=== PATIENT | male | born 1960 | race Caucasian/White ===

== ENCOUNTER 2018-11-04 13:17 | Emergency (ER) | payer OTHER ==
--- NOTE | 2018-11-04 14:01 | ER Document Report ---
ED Medical Screen (RME) - General Chief Complaint: Leg Swelling Stated Complaint: LEG/FOOT SWELLING Time Seen by Provider: 11/04/18 13:32 Mode of Arrival: Ambulatory Information source: Patient Notes: 4-year-old male with history of right lower extremity cellulitis, no other medical problems presents with complaint of 2 weeks of right lower extremity swelling, erythema. Patient works in [place] and states this started 1 week prior to returning home. Patient returned home 5 days prior to arrival. He denies any history of DVT, PE. He denies shortness of breath. I have greeted and performed a rapid initial assessment of this patient. A comprehensive ED assessment and evaluation of the patient, analysis of test results and completion of medical decision making process we will be contacted by additional ED providers. PHYSICAL EXAMINATION: Vital signs reviewed GENERAL: Well-appearing, well-nourished and in no acute distress. LUNGS: No respiratory distress Musculoskeletal: Right lower extremity swelling, erythema, warmth NEUROLOGICAL: Normal speech, normal gait. PSYCH: Normal mood, normal affect. SKIN: Right foot skin sloughing TRAVEL OUTSIDE OF THE [place] IN LAST 30 DAYS: No - HPI Onset: Other Onset/Duration: Gradual Quality of pain: No pain Associated Symptoms: Nausea, Vomiting - One episode last week resolved Similar symptoms previously: Yes Recently seen / treated by doctor: No - Related Data Smoking: Non-smoker Frequency of alcohol use: None Drug Abuse: None Allergies/Adverse Reactions: No Known Allergies Allergy (Verified 11/04/18 13:31) Past Medical History - Social History Chew tobacco use (# tins/day): No Frequency of alcohol use: Occasional Drug Abuse: None Renal/ Medical History: Denies: Hx Peritoneal Dialysis - Immunizations Hx Diphtheria, Pertussis, Tetanus Vaccination: Yes Physical Exam - Vital signs Vitals: Temp Pulse Resp BP Pulse Ox 98.0 F 75 16 133/89 H 97 11/04/18 13:21 11/04/18 13:21 11/04/18 13:21 11/04/18 13:21 11/04/18 13:21 Course - Vital Signs Vital signs: Temp Pulse Resp BP Pulse Ox 98.0 F 75 16 133/89 H 97 11/04/18 13:21 11/04/18 13:21 11/04/18 13:21 11/04/18 13:21 11/04/18 13:21 Doctor's Discharge - Discharge Referrals: PACO MELENDEZ MD [Primary Care Provider] - Follow up as needed
--- NOTE | 2018-11-04 14:32 | ER Document Report ---
ED General - General Chief Complaint: Leg Swelling Stated Complaint: LEG/FOOT SWELLING Time Seen by Provider: 11/04/18 13:32 Mode of Arrival: Ambulatory Information source: Patient Notes: 58-year-old male with a history of right lower extremity cellulitis presents emergency department with complaints of right lower extremity swelling for the last 2 weeks. Patient states that he travels back and forth to [facility]. Patient states that 2 weeks ago he arrived in [facility] and over a week noticed the swelling to the right lower extremity worsening. He had associated erythema and chills. [place] the [place] 5 [place] ago. Swelling has decreased but is still present. Still erythematous. Patient denies a history of DVT, PE, chest pain, shortness of breath. Patient denies any medical problems. Not on medication. Patient says he had similar erythema and swelling 2 years ago and he was diagnosed with cellulitis. He was treated with Bactrim and Keflex. Patient states that his symptoms completely resolved. Patient is worried that he has cellulitis again. TRAVEL OUTSIDE OF THE [place] IN LAST 30 DAYS: No - HPI Onset: Other - 2 weeks Quality of pain: No pain Severity: None Pain Level: Denies Associated symptoms: Chills Exacerbated by: Denies Relieved by: Denies Similar symptoms previously: Yes Recently seen / treated by doctor: No - Related Data Allergies/Adverse Reactions: No Known Allergies Allergy (Verified 11/04/18 13:31) Past Medical History - General Information source: Patient - Social History Smoking Status: Never Smoker Chew tobacco use (# tins/day): No Frequency of alcohol use: Occasional Drug Abuse: None Family History: Reviewed & Not Pertinent Patient has suicidal ideation: No Patient has homicidal ideation: No Renal/ Medical History: Denies: Hx Peritoneal Dialysis - Immunizations Hx Diphtheria, Pertussis, Tetanus Vaccination: Yes Review of Systems - Review of Systems Constitutional: Chills EENT: No symptoms reported Cardiovascular: No symptoms reported Respiratory: No symptoms reported Gastrointestinal: No symptoms reported Genitourinary: No symptoms reported Musculoskeletal: Leg swelling Skin: Change in color Hematologic/Lymphatic: No symptoms reported Neurological/Psychological: No symptoms reported -: Yes All other systems reviewed and negative Physical Exam - Vital signs Vitals: Temp Pulse Resp BP Pulse Ox 98.0 F 75 16 133/89 H 97 11/04/18 13:21 11/04/18 13:21 12/18/18 13:21 11/04/18 13:21 11/04/18 13:21 - Notes Notes: PHYSICAL EXAMINATION: GENERAL: Well-appearing, well-nourished and in no acute distress. HEAD: Atraumatic, normocephalic. EYES: Pupils equal round and reactive to light, extraocular movements intact, sclera anicteric, conjunctiva are normal. ENT: Nares patent, oropharynx clear without exudates. Moist mucous membranes. NECK: Normal range of motion, supple without lymphadenopathy LUNGS: Breath sounds clear to auscultation bilaterally and equal. No wheezes rales or rhonchi. HEART: Regular rate and rhythm without murmurs ABDOMEN: Soft, nontender, nondistended abdomen. No guarding, no rebound. No masses appreciated. Musculoskeletal: Normal range of motion. Swelling to the right lower leg. No calf tenderness to palpation. No pitting edema. Abrasions seen on the tierney. Patient says that he scratched his leg. 2+ DP/PT. Skin sloughing to the heel. NEUROLOGICAL: Cranial nerves grossly intact. Normal speech, normal gait. Normal sensory, motor exams PSYCH: Normal mood, normal affect. SKIN: Warm, Dry, normal turgor, erythema to the RLE. Skin sloughing to the R heel. Course - Re-evaluation Re-evalutation: 11/04/18 14:39 Venous Dopplers negative. Patient's white blood cell count is normal. There is swelling and erythema to the left lower extremity. Abrasion to the tierney. Patient says that he scratched himself. Denies trauma or injury. No pain to palpation of the lower extremity. Foot has skin sloughing. I will start the patient on Bactrim and Keflex. I told the patient to finish the antibiotics and to follow-up for a reevaluation with the primary care physician provided. I told the patient that if his symptoms are not resolving that he either needs to come back to the emergency department for further evaluation or he needs to follow-up with the primary care physician. Patient feels comfortable with the plan of care. He denies any chest pain, shortness of breath, abdominal pain. 11/04/18 15:49 - Vital Signs Vital signs: Temp Pulse Resp BP Pulse Ox 98.0 F 75 16 133/89 H 97 11/04/18 13:21 11/04/18 13:21 11/04/18 13:21 11/04/18 13:21 11/04/18 13:21 - Laboratory Result Diagrams: 11/04/18 14:45 11/04/18 14:45 Laboratory results interpreted by me: 11/04/18 14:45 Glucose 127 H Discharge - Discharge Clinical Impression: Cellulitis Qualifiers: Site of cellulitis: extremity Site of cellulitis of extremity: lower extremity Laterality: right Qualified Code(s): L03.115 - Cellulitis of right lower limb Condition: Good Disposition: HOME, SELF-CARE Instructions: Cellulitis ([facility]) Prescriptions: Cephalexin Monohydrate [Keflex 500 mg Capsule] 500 mg PO Q6H 5 Days #20 capsule Sulfamethoxazole/Trimethoprim [Bactrim Ds Tablet] 1 each PO BID #14 tablet Referrals: PACO MELENDEZ MD [ACTIVE STAFF] - Follow up as needed LOUISA MARTI DO [NO LOCAL MD] - Follow up as needed
[2018-11-04] MEDS ORDERED: CEPHALEXIN 500 MG CAPSULE PO ONE ×2 (14:36→16:51)
[2018-11-04] MEDS ORDERED: SULFAMETHOXAZOLE/TRIMETHOPRIM 800-160 MG TABLET PO ONE (14:36)
[2018-11-04 14:54] LABS: ABSOLUTE EOSINOPHILS # (AUTO) 0.1 10^3/uL (0.0-0.6); ABSOLUTE LYMPHOCYTES (AUTO) 1.9 10^3/uL (0.5-4.7); ABSOLUTE MONOCYTES (AUTO) 0.5 10^3/uL (0.1-1.4); ABSOLUTE NEUT (AUTO) 3.4 10^3/uL (1.7-8.2); BASOPHILS % (AUTO) 0.8 % (0-2); HEMOGLOBIN 15.7 g/dL (13.5-17.0); LYMPHOCYTES % (AUTO) 31.6 % (13-45); MEAN CORPUSCULAR HEMOGLOBIN 30.3 pg (27.0-33.4); MEAN CORPUSCULAR HGB CONC 34.2 g/dL (32.0-36.0); MEAN CORPUSCULAR VOLUME 89 fl (80-97); MONOCYTES % (AUTO) 8.3 % (3-13); PLATELET COUNT 269 10^3/uL (150-450); RED BLOOD COUNT 5.19 10^6/uL (4.35-5.55); SEGMENTED NEUTROPHILS % (AUTO) 57.3 % (42-78); TOTAL CELLS COUNTED % (AUTO) 100 %; WHITE BLOOD COUNT 5.9 10^3/uL (4.0-10.5)
[2018-11-04 15:11] LABS: ANION GAP 7 (5-19); BLOOD UREA NITROGEN 15 mg/dL (7-20); CALCIUM 9.1 mg/dL (8.4-10.2); CARBON DIOXIDE 30 mmol/L (22-30); CHLORIDE 103 mmol/L (98-107); GLUCOSE 127 mg/dL (75-110); POTASSIUM 4.2 mmol/L (3.6-5.0); SODIUM 140.1 mmol/L (137-145)
--- NOTE | 2018-11-04 16:38 | XCELERA REPORT ---
[address] [facility] [id number] Lower Extremity Venous Evaluation Procedure: Color flow and duplex imaging of the veins of the right lower extremity as well as the left Common Femoral vein. Right Sided Venous Evaluation Normal vessel filling wall to wall, compression and augmentation as well as Colour flow down to the infrageniculate veins. Left Sided Venous Evaluation The left common femoral vein is fully compressible. Spontaneous and phasic flow is present in the left common femoral vein. Interpretation Summary No duplex evidence of DVT or obstruction in the right lower extremity nor in the left Common Femoral vein. Name: JEAN NAJERA Age: 58 yrs Gender: Male : 1960 Patient Status: Emergency Patient Location: ER Study Date: 11/04/2018 04:07 PM Reason For Study: Right lower extremity swelling Ordering Physician: GUALBERTO VELA Performed By: Mel Juárez : GUALBERTO VELA > Omar Florez
[2018-11-04 16:56] VITALS: BP 122/94
== END 2018-11-04 16:56 | disposition home or self-care (01) ==
LOC: ER 13:17
DX: L03.115 Cellulitis of right lower limb (principal); R68.83 Chills (without fever)
CPT/HCPCS: 36415; 80048; 85025; 87040; 93971; 99284

== ENCOUNTER → 2018-11-15 | Outpatient (CLI) | payer OTHER ==
[2018-11-15 12:41] LABS: ABSOLUTE BASOPHILS # (AUTO) 0.1 10^3/uL (0.0-0.2); ABSOLUTE EOSINOPHILS # (AUTO) 0.2 10^3/uL (0.0-0.6); ABSOLUTE LYMPHOCYTES (AUTO) 1.9 10^3/uL (0.5-4.7); ABSOLUTE MONOCYTES (AUTO) 0.6 10^3/uL (0.1-1.4); ABSOLUTE NEUT (AUTO) 2.6 10^3/uL (1.7-8.2); EOSINOPHILS % (AUTO) 4.4 % (0-6); HEMATOCRIT 44.1 % (37.9-51.0); HEMOGLOBIN 15.1 g/dL (13.5-17.0); LYMPHOCYTES % (AUTO) 35.4 % (13-45); MEAN CORPUSCULAR HEMOGLOBIN 30.6 pg (27.0-33.4); MEAN CORPUSCULAR HGB CONC 34.2 g/dL (32.0-36.0); MEAN CORPUSCULAR VOLUME 89 fl (80-97); MONOCYTES % (AUTO) 11.1 % (3-13); PLATELET COUNT 190 10^3/uL (150-450); RED BLOOD COUNT 4.93 10^6/uL (4.35-5.55); RED CELL DISTRIBUTION WIDTH 13.7 % (11.5-14.0); SEGMENTED NEUTROPHILS % (AUTO) 48.1 % (42-78); TOTAL CELLS COUNTED % (AUTO) 100 %; WHITE BLOOD COUNT 5.3 10^3/uL (4.0-10.5)
[2018-11-15 12:53] LABS: ALANINE AMINOTRANSFERASE 21 U/L (21-72); ALBUMIN 4.1 g/dL (3.5-5.0); ALKALINE PHOSPHATASE 64 U/L (38-126); ANION GAP 8 (5-19); ASPARTATE AMINO TRANSFERASE 22 U/L (17-59); BILIRUBIN,DIRECT 0.2 mg/dL (0.0-0.4); BILIRUBIN,TOTAL 0.8 mg/dL (0.2-1.3); BLOOD UREA NITROGEN 14 mg/dL (7-20); CALCIUM 9.4 mg/dL (8.4-10.2); CARBON DIOXIDE 29 mmol/L (22-30); CHLORIDE 104 mmol/L (98-107); GLUCOSE 93 mg/dL (75-110); SODIUM 140.7 mmol/L (137-145)
== END ==
LOC: LAB 12:21
PROVIDERS: ATTEND Nurse Practitioner Family
DX: R60.0 Localized edema (principal)
CPT/HCPCS: 36415; 80053; 83880; 85025